=== PATIENT | male | born 1995 | race Asian ===

== ENCOUNTER 2016-08-03 11:13 | Emergency (ER) | payer SELFPAY ==
[2016-08-03 11:19] VITALS: BP 114/60
== END 2016-08-03 12:33 | disposition left against medical advice (07) ==
LOC: ED 11:13
DX: M79.601 Pain in right arm (principal); Z53.21 Procedure and treatment not carried out due to patient leaving prior to being seen by health care provider

== ENCOUNTER → 2016-08-09 08:06 | Day surgery (SDC) | payer OTHER ==
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
[~2016-08-09 08:06] MED LIST: Buffered Lidocaine 1% SYRIN* 3 ML/SYR SYRINGE INTRADERM ONE; Famotidine IV* 10 MG/ML 2 ML (20 mg) ONE; Ketorolac INJ* 30 MG/ML 1 ML VIAL ONE; Lidocaine 1% INJ* 10 MG/ML 30 ML SDV ONE; Mepivacaine 2% MPF (20 MG/ML)* 20 ML MPF ONE; Midazolam* 1 MG/ML 2 ML VIAL (2 MG) ONE; ROPIVACAINE 5 MG/ML 30 ML BTL (0.5%) ONE; ceFAZolin 2 GM PREMIX(*) 2 GM/50 ML BAG IVPB ONE; fentaNYL* 50 MCG/ML 2 ML VIAL (100 MCG VIAL) ONE
[2016-08-09 11:11] VITALS: BP 112/68
--- NOTE | 2016-08-09 14:36 | RAD ---
CPT II Codes: 6045F INDICATION: Right hand fracture TECHNIQUE: Intraoperative fluoroscopy was provided during percutaneous pinning of the proximal right fifth metacarpal. FINDINGS: 2 spot films depict percutaneous pins spanning the proximal right fifth metacarpal and adjacent carpal bones.. Fluoroscopy time: 3.10 seconds IMPRESSION: As above.
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
== END | disposition home or self-care (01) ==
LOC: OREAST 08:06
PROVIDERS: ATTEND Orthopaedic Surgery
DX: S62.316A Displaced fracture of base of fifth metacarpal bone, right hand, initial encounter for closed fracture (principal); F17.210 Nicotine dependence, cigarettes, uncomplicated; V49.9XXA Car occupant (driver) (passenger) injured in unspecified traffic accident, initial encounter; Y93.89 Activity, other specified; Y92.89 Other specified places as the place of occurrence of the external cause
CPT/HCPCS: 76000; C1776; J0670; J0690; J1885; J2001; J2250; J2795; J3010

== ENCOUNTER 2016-08-26 16:59 | Emergency (ER) | payer OTHER ==
[2016-08-26] MEDS ORDERED: NS 0.9% 1000 ML* 2,000 ML IV ONE (18:16)
[2016-08-26] MEDS ORDERED: ceFAZolin 2 GM PREMIX(*) 2 GM/50 ML BAG IVPB ONE (18:18)
[2016-08-26] MEDS ORDERED: Morphine INJ* 4 MG/ML 1 ML SYRINGE IV ONE (18:41)
--- NOTE | 2016-08-26 18:55 | RAD ---
HISTORY: Right hand fracture, swelling pain and redness COMPARISONS: August 22, 2016 VIEWS: 4, Frontal, lateral, and oblique views of the right hand FINDINGS: BONE DENSITY: Normal. BONES: Again noted is a fracture of the base of the fifth metacarpal. The patient is status post external fixation with wires extending through the hamate and capitate. There is no appreciable erosion or periosteal reaction JOINTS: There is no arthropathy. ALIGNMENT: There is no dislocation. SOFT TISSUES: Unremarkable. OTHER FINDINGS: None. IMPRESSION: STATUS POST PERCUTANEOUS FIXATION OF THE PROXIMAL FIFTH METACARPAL
[2016-08-26 19:02] LABS: Hematocrit 49 % (42-52); Hemoglobin 16.4 g/dl (14.0-18.0); Mean Corpuscular HGB Conc 34 g/dl (31-36); Mean Corpuscular Hemoglobin 31 pg (27-31); Mean Corpuscular Volume 93 fL (80-94); Mean Platelet Volume 9 um3 (7.4-10.4); Red Blood Count 5.24 10^6/ul (4.0-5.4); Red Cell Distribution Width 13 % (10.5-15)
[2016-08-26 19:10] LABS: Albumin 5.1 g/dL (3.2-5.2); BUN/Creatinine Ratio 17.4 (8-20); C Reactive Protein 7.39 mg/L (< 5.00); Calcium 10.3 mg/dL (8.6-10.3); EGFR African American 109.8 (>60); EGFR Non-African American 85.4 (>60); Globulin 3.4 g/dL (2-4); Potassium 4.2 mmol/L (3.5-5.0); Total Bilirubin 0.8 mg/dL (0.2-1.0); Total Protein 8.5 g/dL (6.4-8.9)
[2016-08-26] MEDS ORDERED: oxyCODONE/Acetamin 5/325 MG* TAB PO ONE (19:42)
[2016-08-26] MEDS ORDERED: Cephalexin CAP* 500 MG PO ONE (19:43)
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
[2016-08-26 20:39] VITALS: BP 114/64
--- NOTE | 2016-08-28 13:56 | PN ---
Progress Note - Progress Note Note: patient preliminary blood culture grew S aureus with MRSA neg. patient place on keflex which will have continue until get final sensitivity.
--- NOTE | 2016-08-31 08:52 | ED ---
Progress - Progress Note Progress Note: Pt's blood cx reveals staphylococcus auerus on all specimens taken - he was started on keflex and sensitivitie indicate cefzolin (another 1st gen cephalosporin) is deduced to be effective against organism. Attempted to contact pt for update of sx, inquire about f/u, etc - no answer but was able to LMTC. Will also fax results to Dr. Krishan Bah, [place]. Aster steward/stewardess tourist class, aware. *If showing signs of systemic infection, needs to return to ED Re-Evaluation - Re-Evaluation First Eval Re-Evaluation Time: 19:40 - discussed labs, imaigng and plan of aciton Change: Improved Comment: patient agrees with discharge plan Course/Dx - Diagnoses Provider Diagnoses: infected surgical incision on right hand - Provider Notifications Discussed Care Of Patient With: Discussed patient with Dr. Bah Time Discussed With Above Provider: 18:44 - recommened betadine application around the pins, discharge with keflex, and follow up with Dr. Bah tomorrow. Instructed by Provider To: Have Pt Call For Appt. - tomorrow
== END 2016-08-26 20:39 | disposition home or self-care (01) ==
LOC: ED 16:59
DX: S61.401D Unspecified open wound of right hand, subsequent encounter (principal); L08.9 Local infection of the skin and subcutaneous tissue, unspecified; X58.XXXD Exposure to other specified factors, subsequent encounter
CPT/HCPCS: 36415; 80053; 83605; 85025; 86140; 87040; 87077; 87150; 87186; 87205; 99283; A9270-GY; J0690; J2270